=== PATIENT | male | born 1995 | race Asian ===

== ENCOUNTER 2018-08-14 12:40 | Emergency (ER) | payer BC ==
[2018-08-14] MEDS ORDERED: NS 0.9% 1000 ML* 1,000 ML IV ONE (14:27)
[2018-08-14] MEDS ORDERED: Ketorolac INJ* 30 MG/ML 1 ML VIAL IV PUSH ONE (14:27)
[2018-08-14] MEDS ORDERED: Clindamycin 600 MG IVPREMIX(* 600 MG/50 ML SDV IV ONE (14:27)
[2018-08-14] MEDS ORDERED: methylPREDNISolone SOD 40 MG* 1 ML VIAL IV ONE (14:27)
[2018-08-14] MEDS ORDERED: Clindamycin 600 MG/D5W BAG(*) 600 MG/50 ML BAG IV ONE (15:00)
[2018-08-14 15:05] LABS: Hematocrit 46 % (42-52); Hemoglobin 15.6 g/dl (14.0-18.0); Mean Corpuscular HGB Conc 34 g/dl (31-36); Mean Corpuscular Hemoglobin 30 pg (27-31); Mean Corpuscular Volume 90 fL (80-94); Mean Platelet Volume 8.8 fL (7.4-10.4); Platelet Count 234 10^3/ul (150-450); Red Blood Count 5.13 10^6/ul (4.00-5.40); Red Cell Distribution Width 13 % (10.5-15); White Blood Count 12.9 10^3/ul (3.5-10.8)
[2018-08-14 15:17] LABS: EGFR Non-African American 101.3 (>60)
[2018-08-14 15:20] LABS: INR 1.04 (0.77-1.02)
[2018-08-14 16:36] LABS: Monocytes % 8 %
--- NOTE | 2018-08-14 17:21 | ED ---
Throat Pain/Nasal Congestion - HPI Summary HPI Summary: Patient presents with left-sided palate and tonsil swelling over the past 2 days making swallowing painful. He admits to lower B/L ST starting 1 week ago. Took ibuprofen and was able to work through this pain enough to eat Thanksgiving dinner however he's had progressive sore throat since. He was seen today at [facility] and diagnosed with a peritonsillar abscess and sent here for further evaluation. He denies difficulty breathing and has not drooling. Denies headache, neck stiffness, chest pain, shortness of breath, nausea, vomiting, diarrhea, abdominal pain. He did drink some Mountain Dew prior to arrival which he reports helped his throat pain. Denies dental pain. - History of Current Complaint Chief Complaint: EDThroatPain Time Seen by Provider: 08/14/18 14:11 Hx Obtained From: Patient - Allergies/Home Medications Allergies/Adverse Reactions: Allergies Allergy/AdvReac Type Severity Reaction Status Date / Time Penicillins Allergy Hives Verified 08/14/18 12:46 PMH/Surg Hx/FS Hx/Imm Hx Previously Healthy: Yes Endocrine/Hematology History: Denies: Hx Anticoagulant Therapy, Hx Blood Disorders, Hx Diabetes, Hx Thyroid Disease, Autoimmune Disease Infectious Disease History: No Infectious Disease History: Denies: Traveled Outside the [place] in Last 30 Days - Social History Occupation: Student - [employer] Alcohol Use: Weekly Hx Substance Use: No Substance Use Type: Reports: None Hx Tobacco Use: No Smoking Status (MU): Never Smoked Tobacco Review of Systems Constitutional: Negative Negative: Fever, Chills, Fatigue Positive: Sore Throat, Ear Ache - Lt side - pressure. Negative: Nasal Discharge Cardiovascular: Negative Respiratory: Negative Gastrointestinal: Negative Positive: no symptoms reported Musculoskeletal: Negative Skin: Negative Neurological: Negative Positive: Anxious All Other Systems Reviewed And Are Negative: Yes Physical Exam Triage Information Reviewed: Yes Vital Signs On Initial Exam: Initial Vitals Temp Pulse Resp BP Pulse Ox 97.7 F 76 16 127/93 99 08/14/18 12:42 08/14/18 12:42 08/14/18 12:42 08/14/18 12:42 08/14/18 12:42 Vital Signs Reviewed: Yes Appearance: Positive: Well-Appearing, No Pain Distress, Well-Nourished Skin: Positive: Warm, Skin Color Reflects Adequate Perfusion, Dry - no erythema , no ecchymosis, no lesions over affected area Eyes: Positive: Normal, EOMI, MAUDE, Conjunctiva Clear. Negative: Conjunctiva Inflammed, Discharge ENT: Positive: TMs normal - Rt, TM bulging - Lt - mild hyperemia of TM w/ mild erythema -no vesicles, no hemorrhage, no rupture - NTTP, TM dull - Lt, Tonsillar swelling - Lt side of palate and pressumable underlying tonsil edematous w/ erythema +3; Rt tonsil + 2-3, Muffled voice - mild. Negative: Nasal congestion, Nasal drainage, Tonsillar exudate, Trismus, Hoarse voice, Sinus tenderness, Uvula midline Dental: Negative: Abscess @ Neck: Positive: Supple, Tenderness @, Enlarged Nodes @ - Lt submanduibular region w/ mild to moderate edema and mild TTP - no blunting of mandibular angle Respiratory/Lung Sounds: Positive: Clear to Auscultation, Breath Sounds Present. Negative: Rales, Rhonchi, Stridor, Tracheal Deviation, Wheezes, Unable to speak in full sentences, Fatigue Cardiovascular: Positive: Normal, RRR, S1, S2 Abdomen Description: Positive: Nontender, No Organomegaly, Soft Musculoskeletal: Positive: Normal, Strength/ROM Intact Neurological: Positive: Normal, Sensory/Motor Intact, Alert, Oriented to Person Place, Time, CN Intact II-III Psychiatric: Positive: Anxious Diagnostics - Vital Signs Vital Signs Temp Pulse Resp BP Pulse Ox 08/14/18 12:42 97.7 F 76 16 127/93 99 - Laboratory Lab Results: Lab Results 08/14/18 08/14/18 08/14/18 Range/Units 14:48 14:48 14:48 WBC 12.9 H (3.5-10.8) 10^3/ul RBC 5.13 (4.00-5.40) 10^6/ul Hgb 15.6 (14.0-18.0) g/dl Hct 46 (42-52) % MCV 90 (80-94) fL MCH 30 (27-31) pg MCHC 34 (31-36) g/dl RDW 13 (10.5-15) % Plt Count 234 (150-450) 10^3/ul MPV 8.8 (7.4-10.4) fL Neut % (Auto) Not Reportable Lymph % (Auto) Not Reportable [place] % (Auto) Not Reportable Eos % (Auto) Not Reportable Baso % (Auto) Not Reportable Absolute Neuts (auto) Not Reportable Absolute Lymphs (auto) Not Reportable Absolute Monos (auto) Not Reportable Absolute Eos (auto) Not Reportable Absolute Basos (auto) Not Reportable Absolute Nucleated RBC Not Reportable Neutrophils % 39 % Lymphocytes % 30 % Reactive Lymphs % 23 H (0-6) % Monocytes % 8 % Nucleated RBC % Not Reportable Abs Neuts (Manual) 5.0 (1.5-7.7) 10^3/ul Abs Lymphs (Manual) 6.9 H (1.0-4.8) 10^3/ul Abs Monocytes (Manual) 1.0 H (0-0.8) 10^3/ul Normal RBC Morphology Normal (Normal) Hem Pathologist Commnt Pending INR (Anticoag Therapy) 1.04 H (0.77-1.02) APTT 33.5 (26.0-36.3) seconds Sodium 140 (135-145) mmol/L Potassium 3.9 (3.5-5.0) mmol/L Chloride 106 (101-111) mmol/L Carbon Dioxide 27 (22-32) mmol/L Anion Gap 7 (2-11) mmol/L BUN 9 (6-24) mg/dL Creatinine 0.94 (0.67-1.17) mg/dL Est GFR ( Amer) 122.6 (>60) Est GFR (Non-Af Amer) 101.3 (>60) BUN/Creatinine Ratio 9.6 (8-20) Glucose 93 (70-100) mg/dL Lactic Acid (0.5-2.0) mmol/L Calcium 9.3 (8.6-10.3) mg/dL Total Bilirubin 0.60 (0.2-1.0) mg/dL AST 19 (13-39) U/L ALT 44 (7-52) U/L Alkaline Phosphatase 92 (34-104) U/L C-Reactive Protein 62.53 H (<8.01) mg/L Total Protein 7.5 (6.4-8.9) g/dL Albumin 4.3 (3.2-5.2) g/dL Globulin 3.2 (2-4) g/dL Albumin/Globulin Ratio 1.3 (1-3) Monoscreen Positive A (Negative) Group A Strep Rapid (Negative) 08/14/18 08/14/18 Range/Units 14:48 15:10 WBC (3.5-10.8) 10^3/ul RBC (4.00-5.40) 10^6/ul Hgb (14.0-18.0) g/dl Hct (42-52) % MCV (80-94) fL MCH (27-31) pg MCHC (31-36) g/dl RDW (10.5-15) % Plt Count (150-450) 10^3/ul MPV (7.4-10.4) fL Neut % (Auto) Lymph % (Auto) [place] % (Auto) Eos % (Auto) Baso % (Auto) Absolute Neuts (auto) Absolute Lymphs (auto) Absolute Monos (auto) Absolute Eos (auto) Absolute Basos (auto) Absolute Nucleated RBC Neutrophils % % Lymphocytes % % Reactive Lymphs % (0-6) % Monocytes % % Nucleated RBC % Abs Neuts (Manual) (1.5-7.7) 10^3/ul Abs Lymphs (Manual) (1.0-4.8) 10^3/ul Abs Monocytes (Manual) (0-0.8) 10^3/ul Normal RBC Morphology (Normal) Hem Pathologist Commnt INR (Anticoag Therapy) (0.77-1.02) APTT (26.0-36.3) seconds Sodium (135-145) mmol/L Potassium (3.5-5.0) mmol/L Chloride (101-111) mmol/L Carbon Dioxide (22-32) mmol/L Anion Gap (2-11) mmol/L BUN (6-24) mg/dL Creatinine (0.67-1.17) mg/dL Est GFR ( Amer) (>60) Est GFR (Non-Af Amer) (>60) BUN/Creatinine Ratio (8-20) Glucose (70-100) mg/dL Lactic Acid 1.3 (0.5-2.0) mmol/L Calcium (8.6-10.3) mg/dL Total Bilirubin (0.2-1.0) mg/dL AST (13-39) U/L ALT (7-52) U/L Alkaline Phosphatase (34-104) U/L C-Reactive Protein (<8.01) mg/L Total Protein (6.4-8.9) g/dL Albumin (3.2-5.2) g/dL Globulin (2-4) g/dL Albumin/Globulin Ratio (1-3) Monoscreen (Negative) Group A Strep Rapid Negative (Negative) Result Diagrams: 08/14/18 14:48 08/14/18 14:48 Lab Statement: Any lab studies that have been ordered have been reviewed, and results considered in the medical decision making process. Re-Evaluation - Re-Evaluation First Eval Change: Improved - voice improved, swelling improved visibly and per pt - swallowing w/o pain or difficulty - airway patent. EENT Course/Dx - Course Course Of Treatment: Patient presents with prolonged sore throat leading to inflamed and painful left tonsillar/palate region. He was seen at [facility] and was diagnosed with concern of peritonsillar abscess. Provided with Toradol, Solu-Medrol, clindamycin as well as IV fluids here. Patient reports relief of symptoms and visibly has reduce swelling over palate and Left side of neck however he does still have some edema on the left peritonsillar region. He is breathing and swallowing without difficulty. His strep test is neg however his monospot is positive. Discussed case with Dr. Thurston who does not feel he needs further intervention here such as CT scan or drainage today. He will follow-up with the patient tomorrow in clinic. Will continue to prescribe anti-inflammatories as well as clindamycin. Reviewed danger signs and symptoms with patient who agrees with plan. Diff dx: cellulitis vs. abscess - Diagnoses Provider Diagnoses: Throat swelling, Monospot test positive Discharge - Sign-Out/Discharge Documenting (check all that apply): Patient Departure - Discharge Plan Condition: Stable Disposition: HOME Prescriptions: Clindamycin HCl 300 mg PO TID #30 capsule Ibuprofen TAB* [Motrin TAB* 600 MG] 600 mg PO Q6H PRN #20 tab PRN Reason: Pain predniSONE TAB* [Deltasone 20 MG TAB*] 40 mg PO DAILY #10 tab Patient Education Materials: Mononucleosis (ED), Peritonsillar Abscess (ED) Forms: *School Release Referrals: Donald Thurston MD [Medical Doctor] - Additional Instructions: Stay hydrated Avoid eating tough foods or difficult to swallow foods to avoid throat irritation Take medications as directed - 2 pain and swelling medications, 1 antibiotic Follow-up with ENT tomorrow - call in the morning to verify appointment. *If in the meantime you develop return of swelling, pain, difficulty breathing or swallowing, headache, neck pain or stiffness, return to the ED Follow up with [facility] regarding mononucleosis diagnosis. Call tomorrow to schedule an appointment. - Billing Disposition and Condition Condition: STABLE Disposition: Home
[2018-08-14 17:53] VITALS: BP 124/78
== END 2018-08-14 17:52 | disposition home or self-care (01) ==
LOC: ED 12:40
DX: R22.1 Localized swelling, mass and lump, neck (principal); B27.90 Infectious mononucleosis, unspecified without complication; Z88.0 Allergy status to penicillin
CPT/HCPCS: 36415; 80053; 83605; 85025; 85060; 85610; 85730; 86140; 86308; 87651; 96365; 96375; 99282; J1885; J2920